=== PATIENT | male | born 1995 | race African-American/Black ===

== ENCOUNTER 2025-01-23 09:10 | Inpatient (IN) | payer OTHER, SELFPAY ==
[2025-01-23] VITALS (22 sets, daily range): BP systolic 127–161; BP diastolic 70–125; BMI 20.1; BMI 19.8
[2025-01-23] MEDS: ZOFRAN 4 MG IV (04:16)
[2025-01-23] MEDS: MORPHINE SULFATE 4 MG IV (04:16)
[2025-01-23 04:23] LABS: Hematocrit 39.8 % (39.0-52.0); Hemoglobin 13.8 g/dL (13.0-18.0); Mean Corp Hgb Conc. 34.7 g/dL (33.0-37.0); Mean Corpuscular Volume 87.9 fL (80.0-94.0); Platelet Count 311 10^3/uL (130-400); Red Cell Dist. Width 12.7 % (11.5-14.5)
[2025-01-23 04:38] LABS: Blood Urea Nitrogen 10 mg/dl (9-20); Calcium 8.9 mg/dl (8.4-10.2); Carbon Dioxide 25 mmol/L (22-30); Chloride 104 mmol/L (98-107); Estimated Creatinine Clearance 114 ml/min; Glucose 219 mg/dl (70-99); Lipase 149 U/L (23-300); Sodium 138 mmol/L (135-145); eGFR > 60.00
[2025-01-23] MEDS: DILAUDID 0.5 MG IV ×3 (05:03→22:17)
[2025-01-23 05:08] LABS: Absolute Neutrophils -Man Diff 15.4 10^3/uL (1.4-6.5); Anisocytosis 1+; Normal RBC Morphology No; Platelets Checked Yes; Total Cells Counted 100
--- NOTE | 2025-01-23 05:40 | ED.GENMED ---
History of Present Illness
General
Chief Complaint: Abdominal Pain
Source: patient and police
Time Seen by Provider: 01/23/25 04:02
Nursing documentation reviewed up to this point in time: agreed with
History of Present Illness
History of Present Illness:
Note:
CHIEF COMPLAINT(S)
Abdominal pain
HISTORY OF PRESENT ILLNESS
The patient is a 29-year-old male who presents with a complaint of abdominal pain that began a few days ago and has progressively worsened. The patient describes the pain as 'horrible.' There is no associated trauma to the area. The patient has not
consumed substantial meals, primarily only snacks like chips and candy. He reports possible constipation but denies any diarrhea.
REVIEW OF SYSTEMS
- Gastrointestinal: Abdominal pain, possible constipation, no diarrhea.
PHYSICAL EXAM
General: Alert, no acute distress.
Skin: Warm, dry.
Head: Normocephalic, atraumatic.
Neck: Supple, trachea midline.
Eye Ears, nose, mouth and throat: Oral mucosa moist.
Cardiovascular: Normal peripheral perfusion, No edema.
Respiratory: Respirations are non-labored.
Gastrointestinal: Abdomen nondistended
Back: Normal range of motion, Normal alignment.
Musculoskeletal: Normal ROM, normal strength.
Neurological: Alert and oriented to person, place, time, and situation, No focal neurological deficit observed.
Psychiatric: Cooperative, appropriate mood & affect.
PROBLEM LIST
Acute abdominal pain
DIFFERENTIAL DIAGNOSIS
The Differential Diagnosis includes, in no particular order and is not limited to:
1. Gastroenteritis
2. Irritable Bowel Syndrome
3. Constipation
4. Appendicitis
5. Peptic Ulcer Disease
6. Cholecystitis
7. Pancreatitis
8. Small Bowel Obstruction
9. Diverticulitis
10. Gastroesophageal Reflux Disease (GERD)
CARE-UPDATE
01/23/25 - 05:42
CT scan reveals a substantial pneumoperitoneum with small inflammatory free fluid along the right colic gutter and pooling in the pelvic cul-de-sac. Source of pneumoperitoneum is not definitively identified but is suspected to be a perforated
gastric ulcer. Spoke with Dr. Donaldo Costello from General Surgery, who will assess the patient in the emergency department this morning.
Disposition:
SUMMARY OF ENCOUNTER
The patient, a 29-year-old male, presented to the emergency department with complaints of worsening abdominal pain over several days. A CT scan revealed a substantial pneumoperitoneum with small inflammatory free fluid along the right colic gutter
and pooling in the pelvic cul-de-sac. There was no definitive source of the pneumoperitoneum identified, but it was suspected to be from a perforated gastric ulcer. After discussing the case with Dr. Donaldo Vivas from General Surgery, it was
decided that the patient would be assessed by General Surgery for further management.
MANAGEMENT OF THE PATIENTS CARE WAS DISCUSSED WITH
The case was discussed with Dr. Donaldo Costello from General Surgery, who will assess the patient in the emergency department.
INDEPENDENT REVIEW OF LABS AND INTERPRETATION OF TESTS
My independent interpretation of the CT scan reveals a substantial pneumoperitoneum with small inflammatory free fluid along the right colic gutter and pooling in the pelvic cul-de-sac. The suspected source is a perforated gastric ulcer.
MEDICAL DECISION MAKING
- Number and Complexity of Problems Addressed: The patient presents with acute abdominal pain likely secondary to a perforated gastric ulcer, with pneumoperitoneum identified on CT scan. The differential diagnosis considered included:
1. Gastroenteritis
2. Pneumoperitoneum
3. Constipation
4. Appendicitis
5. Peptic Ulcer Disease
6. Cholecystitis
7. Pancreatitis
8. Small Bowel Obstruction
9. Diverticulitis
10. Gastroesophageal Reflux Disease (GERD)
- Data:
Category 3: Discussion of management with Dr. Donaldo Vivas, General Surgery.
DIAGNOSIS
- Pneumoperitoneum, suspected perforated gastric ulcer (ICD-10-CM K27.1 - Peptic ulcer, acute with perforation)
Phy Exam
General Physical Exam
General Presentation: moderate distress
General age: appears stated age
General Skin: warm and dry
General Habitus: normal
General Mental: alert
General Hydration: appears well hydrated
ENT Exam
ENT Exam: EOMI, pharynx normal, neck supple and normocephalic
Eye Exam
Eye Exam: PERRL, cornea clear and conjunctiva normal
Cardiovascular Exam
Cardiovascular Exam: regular rate/rhythm, no edema, no murmur and normal peripheral pulses
Pulmonary Exam
Pulmonary Exam: lungs clear, no respiratory distress, no rales, no crackles, no rhonchi, no stridor, no wheezing and no cough
Gastrointestinal Exam
Gastrointestinal Exam: distended, guarding and tender
Palpation: generalized: Moderate tenderness
Auscultation of Abdomen: hyperactive
Neurological Exam
Neurological Exam: alert and oriented x3
Musculoskeletal Exam
Musculoskeletal Exam: full ROM and no edema
Skin Exam
Skin Exam: normal color, warm/dry, no rash and no petechia
Psychiatric Exam
Psychiatric Exam: normal mood/affect
Course
Orders/Labs/Results
Orders:
Orders
01/23/25 03:54
IV Insert/Care/Rem.- Treatment PRN
01/23/25 03:55
Electrocardiogram (*1) Urgent
Reason for Study: Abdominal Pain
EKG- Treatment ONCE
01/23/25 04:01
Basic Metabolic Panel Urgent
Comment: NO K
Complete Blood Count/With Diff Urgent
Lipase Urgent
Manual Differential Urgent
Comment: ADD ON
01/23/25 04:05
Lactic Acid Urgent
01/23/25 04:07
Morphine Sulfate 4 mg IV NOW STA
Ondansetron Injectable [Zofran] 4 mg IV NOW STA
01/23/25 04:42
CT Abd/pelvis W Iv Cont Urgent
Comment:
Reason For Exam: upper abd pain
01/23/25 05:01
HYDROmorphone [Dilaudid] 0.5 mg .ROUTE .STK-MED ONE
01/23/25 05:02
HYDROmorphone [Dilaudid] 0.5 mg IV NOW STA
01/23/25 05:43
Piperacillin/Tazo 4.5 Gram [Zosyn] 4.5 gram in 100 ml IV NOW
01/23/25 05:54
HYDROmorphone [Dilaudid] 0.5 mg IV NOW STA
01/23/25 Breakfast
NPO
Allow oral meds: No
Allow clear liquids: No
NPO with Ice Chips: Yes
01/23/25 06:11
Vancomycin [Vancocin] 1,500 mg 0.9% Sodium Chloride 500 ml [Nss] 500 ml IV NOW
01/23/25 07:04
Bupivacaine Mpf 0.25% [Sensorcaine-Mpf 0.25% Vial] 30 ml .ROUTE .STK-MED ONE
01/23/25 07:13
Lidocaine 2% Mpf [Xylocaine Mpf 2%] 100 mg .ROUTE .STK-MED ONE
Propofol [Diprivan] 40 ml .ROUTE .STK-MED
01/23/25 07:16
Dexamethasone Sod Phosphate [Decadron] 20 mg .ROUTE .STK-MED ONE
Dexmedetomidine HCl [Precedex] 200 mcg .ROUTE .STK-MED ONE
Fentanyl Citrate/Pf [Sublimaze] 100 mcg .ROUTE .STK-MED ONE
Ketamine 5 ml .ROUTE .STK-MED
Midazolam HCl [Versed] 2 mg .ROUTE .STK-MED ONE
Ondansetron Injectable [Zofran] 4 mg .ROUTE .STK-MED ONE
Rocuronium [place] [Rocuronium] 100 mg .ROUTE .STK-MED ONE
01/23/25 07:19
Bupivacaine 0.25%Pf/Epinephrin [Sensorcaine-Epi 0.25%-0.0005] 30 ml .ROUTE .STK-MED ONE
01/23/25 07:25
Fentanyl Citrate/Pf [Sublimaze] 25 mcg IV [id number] PRN
Morphine Sulfate 2 mg IV PACU-Q5MPRN PRN
Morphine Sulfate 4 mg IV PACU-Q5MPRN PRN
Ondansetron Injectable [Zofran] 4 mg IV PACU-ONCEPRN PRN
Prochlorperazine [Compazine] 5 mg IV PACU-ONCEPRN PRN
Notify MD As Directed
Notify physician if: for SDS patients with known or suspected sleep obstructive sleep apnea, monitor in the
PACU.
Notify MD for any apneic/desaturation episodes
O2 Therapy [RESP] Urgent
Titrate/Wean O2 to maintain O2 sat greater than (%): 92
Special Instructions: -Provide supplemental oxygen to achieve O2 sat of 92% or greater.
-After 15 min, may wean O2 and discontinue if patient is able to maintain O2 sat of 92%
or greater during recovery period.
If patient is a discharge home, without oxygen therapy, notify anestheiologist if
unable to maintain O2 SAT of 92% or greater on room air for MD clearance.
01/23/25 07:30
Normosol (Mult Electrolytes) [Normosol-R/Plasmalyte-A] 1,000 ml IV PER PROTOCOL
01/23/25 08:04
Bupivacaine 0.25%Pf/Epinephrin [Sensorcaine-Epi 0.25%-0.0005] 30 ml .ROUTE .STK-MED ONE
01/23/25 08:06
HYDROmorphone [Dilaudid] 1 mg .ROUTE .STK-MED ONE
01/23/25 08:36
Sugammadex Sodium [[place]] 400 mg .ROUTE .STK-MED ONE
01/23/25 08:44
Succinylcholine Chloride [Succinylcholine] 200 mg .ROUTE .STK-MED ONE
01/23/25 08:49
Admit/Transfer Patient As Directed
Co-Sign Provider:
Level of Care: Inpatient admission
Assign to:: Medical/Surgical
Physician / Group: Pravin
Diagnosis: Perforated duodenal ulcer
Reason for Hospitalization: OR
Expected length of stay greater than two midnights?: Yes
ELOS- Estimated Length of Stay in days: 5
I certify the patient meets the requirements for IP care: Yes
01/23/25 08:50
PRN Pain Medication Management As Directed
May give lesser potent ordered pain med per pt: Yes
preference::
Protocol:: Medication orders for pain may be administered in a
manner that supports deferring to patient preference
when the pt is:
- Requesting an ordered lesser potent pain medication.
Least to most potent pain medications are defined
as: acetaminophen < NSAID < tramadol < opioids
(morphine, oxycodone, hydromorphone).
- Requesting a lesser dose of the same medication IF
ORDERED.
- Requesting a less intrusive route of administration
if both routes are prescribed by the provider (PO <
IV).
01/23/25 08:51
Code Status As Directed
Resuscitation Status: Full Code
01/23/25 09:24
Acetaminophen 1000MG/100Ml [Ofirmev] 1,000 mg in 100 ml IV Q6HPRN
Acetaminophen IV Indication:: No NV & No Enteral Access
HYDROmorphone [Dilaudid] 0.5 mg IV Q2HPRN PRN
HYDROmorphone [Dilaudid] 1 mg IV Q2HPRN PRN
Normosol (Mult Electrolytes) [Normosol-R/Plasmalyte-A] 1,000 ml IV 120 mls/hr
Ondansetron Injectable [Zofran] 4 mg IV Q6HPRN PRN
Pantoprazole [Protonix IV] 80 mg IV NOW STA
Prochlorperazine [Compazine] 5 mg IV Q6HPRN PRN
01/23/25 09:24
Activity As Directed
Activity Level: Out of Bed-Early Mobility
As Tolerated
Cold Application As Directed
Location: abdominal
Frequency: PRN
Duration of Application: No longer than 30 minutes
Method of Delivery: Ice packs
Method of Delivery: Ice packs
Gastrointestinal Tubes As Directed
Type: [place] sump
To suction?: Yes
Type of suction: Low intermittent
Directions to clamp NG tube: clamp for ambulation <30min
Irrigate tube?: Yes
Irrigant: Tap Water
Frequency: Q4H
Amount in mls: 30
Irrigation Directions: Irrigate Q4H and PRN
Intake/ Output As Directed
Frequency: Per unit guidelines
Pneumatic Compression Sleeves As Directed
Type: Knee high
Vital Signs As Directed
Frequency: Per unit guidelines
Rx Incentive Spirometry [RESP] Routine
Frequency: q1h while awake
# of times per hour: 10
DX Deep Vein Thrombosis Video Routine
01/23/25 10:00
Pantoprazole 80 mg/100 ml Nss [Protonix] 80 mg in 100 ml IV Q10H
01/23/25 12:00
Piperacillin/Tazo 3.375 Gram [Zosyn] 3.375 gram in 50 ml IV Q6H
01/23/25 18:00
Enoxaparin Sodium [Lovenox] 40 mg SC QPM
01/24/25 05:33
Basic Metabolic Panel IN AM
Complete Blood Count/No Diff IN AM
01/25/25 06:00
Basic Metabolic Panel IN AM
Complete Blood Count/No Diff IN AM
01/26/25 06:00
Basic Metabolic Panel IN AM
Abnormal Lab Results
01/23/25 01/23/25
04:01 04:05
WBC 22.0 H 10^3/uL
(4.8-10.8)
RBC 4.53 L 10^6/uL
(4.70-6.10)
Abs Neuts (Manual) 15.4 H 10^3/uL
(1.4-6.5)
Monocytes (Manual) 1 L %
(2-9)
Glucose 219 H mg/dl
(70-99)
Lactic Acid 3.7 H mmol/L
(0.7-2.0)
01/23/25 04:01
01/23/25 04:01
Vital Signs
Initial and Last Documented VS:
Initial Vital Signs
Temp Pulse Resp BP Pulse Ox
98.0 F 69 17 147/125 98
01/23/25 03:55 01/23/25 03:55 01/23/25 03:55 01/23/25 03:55 01/23/25 03:55
Last Documented Vital Signs
Temp Pulse Resp BP Pulse Ox
99.2 F 57 16 151/80 100
01/24/25 15:10 01/24/25 15:10 01/24/25 15:10 01/24/25 15:10 01/24/25 15:10
*Pulse Oximetry
SaO2: 98
Oxygen Mode of Delivery: Room air
Patient hypoxic: no
*Critical Care Note
Total Time (30-74mins, 75-104mins- exclusive of procedures): Not Applicable
Update Note
Update Note:
NAME: EDNA SAINI
DATE OF EXAM: 01/23/2025
Patient No: [id number]
Physician: JOSE F
Date of : 1995
Past Medical History (entered by Technologist):
Reason For Exam (entered by Technologist): abdominal pain that started several days ago,
Other Notes (entered by Technologist): no prior ct
Additional Information (per [facility] Radiologist):
CT abdomen/pelvis with contrast
Comparison: None
IMPRESSION:
Large pneumoperitoneum. Small inflammatory free fluid is present along the right colic gutter, and pooling in the pelvic cul-de-sac. The source of the pneumoperitoneum is not definitively identified, although is considered most likely to be a
perforated gastric ulcer. Recommend urgent surgical consultation.
Small hiatal hernia. Possible mild adynamic ileus without small bowel obstruction. The appendix (e.g. axial images 59-63) is not fully resolved but appears normal where seen. Extensive stranding along the ascending colon, which may reflect
omental inflammation, although a colitis may have a similar appearance. The remainder of the colon appears unremarkable.
Additional findings:
�Lung bases clear.
� Normal liver, gallbladder, pancreas, spleen, adrenal glands, kidneys.
� Mild wall thickening of the urinary bladder is favored reactive, although consider urinalysis to exclude superimposed cystitis.
� No abdominal aortic aneurysm. Patent splanchnic vessels.
� No acute osseous abnormality.
Case discussed with Dr. Richards at 5:31 AM ET
Annetta Ching M.D.
This report has been electronically signed and verified by the Radiologist whose name is printed above.
ED Attending Note
-
Portions of this chart may have been created with voice recognition software.� Occasional wrong word or��sound alike� substitutions may have occurred due to the inherent limitations of voice recognition software.
Discharge Plan
Departure
Patient Disposition: OR
Date of Disposition: 01/23/25
Time of Disposition: 05:53
Presentation/result/management discussed w/ accepting /: Donaldo Costello
Condition: Critical
Discharge Problem:
Pneumoperitoneum
Interventions
Interventions:
*Risk Screen - Suicide Last Done: 01/23/25 04:52
*General Assessment Last Done: 01/23/25 03:55
*Neglect/Abuse Screening Last Done: 01/23/25 03:55
*ED- Fall Risk Assessment Last Done: 01/23/25 03:55
*ED COVID-19 Vaccine History Last Done: 01/23/25 03:55
*Nursing Disposition Last Done: 01/23/25 07:15
RR-[id number]-Ofcjzddjrz Assessment Last Done: 01/23/25 04:23
Discharge Date and Time
Discharge Date/Time: 01/23/25 07:16
[2025-01-23] MEDS: ZOSYN 100 IV (06:12)
[2025-01-23] MEDS: VANCOCIN 530 MG IV (06:33)
--- NOTE | 2025-01-23 07:42 | HPS.HSE ---
Family Physician
-
Family Physician: NOT KNOW UNKNOWN - PT DOES
Chief Complaint
-
Abdominal pain
History of Present Illness
Patient is a 29-year-old male who reports the acute onset of severe and persistent epigastric abdominal pain for the last 2 to 3 days. He has had occasional epigastric pain in the past but nothing like this recently. Associated nausea and
anorexia. He has had had some loose bowel movements but no melena or hematochezia. Worse with any movement.
Medical History
Past Medical History
Past Medical History: Reports None (Patient denies any active or significant past medical history)
Past Surgical History: Reports None
Social History
Tobacco: Non-smoker
Alcohol: None
Drug: Marijuana
Living: [facility]
Family History
Family History: Not pertinent
Allergies / Home Medications
Allergies reflects when Allergies were last updated in [facility].
Home Medications with original date entered in [facility]
Allergy/Medication List:
Allergies
Allergy/AdvReac Type Severity Reaction Status Date / Time
No Known Allergies Allergy Verified 01/23/25 04:11
Patient reports no regular medications
Review of Systems
-
History Source: Patient
A 12 point ROS was completed and negative except as noted: Yes
Physical Exam
Vital Signs
Vital Signs
Temp Pulse Resp BP Pulse Ox
98.0 F 65 29 150/93 98
01/23/25 03:55 01/23/25 06:30 01/23/25 06:30 01/23/25 06:00 01/23/25 05:43
Physical Exam
General: Well Developed, Well Nourished, Appears in Distress and Other (Acutely ill-appearing)
HEENT: NormoCephalic, Anicteric, Moist mucous membranes and Atraumatic
Respiratory: Non Labored Respirations
Cardiac: Regular Rhythm
GI: Tender (Generalized tenderness on palpation with rebound and guarding in the epigastrium) and Distended
Skin: Warm
Neuro: AO x 3
Psych: Calm
Laboratory Results
-
01/23/25 04:01
01/23/25 04:01
Laboratory Results
Lactic Acid 3.7 mmol/L (0.7-2.0) H 01/23/25 04:05
Total Bilirubin Cancelled 01/23/25 04:01
AST Cancelled 01/23/25 04:01
ALT Cancelled 01/23/25 04:01
Alkaline Phosphatase Cancelled 01/23/25 04:01
Lipase 149 U/L (23-300) 01/23/25 04:01
Data Reviewed
-
CT Scan: Image Personally Visualized and interpreted, Report Reviewed by me, Discussed with Physician and Discussed with Patient
Impression/Plan
-
IMPRESSION: 29-year-old male with peritonitis and perforated viscus. Suspect perforated peptic ulcer gastric or duodenal based on history and CT imaging.
Advised patient of imaging results and recommended urgent operative intervention for management. Exploratory laparotomy, repair of perforated viscus was reviewed in detail including potential operative findings such as repair of a gastric or
duodenal ulcer, small bowel resection if perforation or management of colonic perforation as well. We discussed benefits of surgery and risk such as but not limited to bleeding, infectious and wound related complications. Discussed typical
postoperative recovery pending operative findings
PLAN: Ex lap, repair of perforated viscus
--- NOTE | 2025-01-23 07:52 | W.SUR.PREOP ---
Pre-Operative Surgical Note
-
I have examined this patient prior to the performance of the scheduled procedure.
The patient's condition is unchanged from the time of the current History and
Physical and the patient is able to undergo the scheduled procedure.
--- NOTE | 2025-01-23 09:06 | W.IMMPOSTOP ---
Addendum entered and electronically signed by Donaldo Costello MD 01/23/25 09:15:
#[id number]
Original Note:
Surgical Immed Post Op Note
-
Primary Surgeon: Donaldo Costello MD
Assisting Surgeon: Emily JEFFERY
Pre-op Diagnosis: Perforated viscus, free air, peritonitis
Post-op Diagnosis: Perforated duodenal ulcer/peritonitis
Procedure Performed: Exploratory laparotomy primary repair perforated duodenal ulcer with omental pedicle flap
Anesthesia Type: GETA +0.25% Marcaine with epi
Specimen / Cultures: None
Estimated Blood Loss: 8 mL
Complications: None immediate
Operative Findings: 5 mm perforated duodenal ulcer located in the duodenal bulb immediately distal to pylorus. Primary closure of ulcer with 3-0 silk. Omental pedicle flap buttress. Mild to moderate contamination washed out.
[2025-01-23] MEDS: PROTONIX IV 80 MG IV (09:57)
[2025-01-23] MEDS: NSS (PRESERVATIVE FREE) 20 ML IV (09:58)
[2025-01-23] MEDS: PROTONIX 100 IV ×2 (10:06→17:25)
[2025-01-23] MEDS: ZOSYN 50 IV ×3 (11:52→23:51)
[2025-01-23] MEDS: NORMOSOL-R/PLASMALYTE-A 1000 IV ×2 (12:37→22:17)
[2025-01-23] MEDS: DILAUDID 1 MG IV ×2 (14:03→19:30)
--- NOTE | 2025-01-23 14:32 | PTCARENOTE ---
Received patient from PACU around 1305 via bed in stable condition. Patient accompanied by 2 correctional guards. NGT to right nare at 65 marking to LIWS with brown drainage. Midline abdominal incision with surgical glue MAXIMUS. Patient oriented to
room. Call borden in reach.
[2025-01-23] MEDS: LOVENOX 40 MG SC (17:27)
[2025-01-24] MEDS: DILAUDID 1 MG IV ×4 (00:32→15:35)
[2025-01-24] MEDS: PROTONIX 100 IV (01:12)
[2025-01-24 03:13] VITALS: BP 132/77
[2025-01-24] MEDS: ZOSYN 50 IV ×3 (05:32→18:08)
[2025-01-24 06:23] LABS: Hematocrit 36.4 % (39.0-52.0); Hemoglobin 12.5 g/dL (13.0-18.0); Mean Corp Hgb Conc. 34.3 g/dL (33.0-37.0); Mean Corpuscular Volume 89.4 fL (80.0-94.0); Platelet Count 290 10^3/uL (130-400); Red Cell Dist. Width 12.9 % (11.5-14.5)
[2025-01-24 06:46] LABS: Blood Urea Nitrogen 9 mg/dl (9-20); Calcium 8.7 mg/dl (8.4-10.2); Carbon Dioxide 28 mmol/L (22-30); Chloride 102 mmol/L (98-107); Estimated Creatinine Clearance 100 ml/min; Glucose 94 mg/dl (70-99); Potassium 4.2 mmol/L (3.5-5.1); Sodium 137 mmol/L (135-145); eGFR > 60.00
[2025-01-24 07:10] VITALS: BP 143/85
[2025-01-24] MEDS: NORMOSOL-R/PLASMALYTE-A 1000 IV ×2 (07:28→16:21)
[2025-01-24 11:00] VITALS: BP 137/86
[2025-01-24] MEDS: DILAUDID 0.5 MG IV ×2 (11:31→21:08)
--- NOTE | 2025-01-24 11:47 | W.PN.GS2 ---
Today's Communication / Plan
-
c/w PPI/NGT/IVF
void trial
Assessment / Plan
-
29 yo male presenting with perforated duodenal ulcer/peritonitis now POD #1 ex lap and primary repair of perforated duodenal ulcer with omental pedicle flap
Tmax 99.8, VSS
NGT with gastric outputs
Pain well managed
Leukocytosis improved
Mild acute anemia present suspect secondary to hemodilution as well as some expected operative blood losses
Plan:
Continue with NGT in place in immediate post operative period
Remove grider for voiding trial
Change PPI drip to IVP BID
Continue NPO
Continue IVF
Analgesics scheduled and prn, no NSAIDS
Continue IV ABX
OOB/Ambulate
Trend labs
Lovenox and SCDs for VTE ppx
Subjective Data
-
Date of Service: January 24, 2025
Pt seen and examined at bedside with Dr. Cota. Denies n/v. Pain well managed. Voiding since grider removed.
Objective Data
-
Intake and Output
01/23/25 0701/25/25
06:59 06:59 06:59
Intake Total 3205 / 3205
Output Total 2100 / 2100
Balance 1105 / 1105
Intake:
Oral fluids 240 / 240
IV fluids (Total) 1565 / 1565
normasol 125 / 125
IV piggybacks 720 / 720
Amount instilled into GI Tube ( 680 / 680
Total)
[place] Sump 680 / 680
Output:
Gastrointestinal tube output ( 250 / 250
Total)
[place] Sump 250 / 250
Urine, Grider 1400 / 1400
Urine, Voided 450 / 450
Vital Signs
Temp Pulse Resp BP Pulse Ox
99.3 F 59 14 137/86 100
01/24/25 11:00 01/24/25 11:00 01/24/25 11:00 01/24/25 11:00 01/24/25 11:00
Lab Results
01/24/25 05:33
01/24/25 05:33
Calcium 8.7 mg/dl (8.4-10.2) 01/24/25 05:33
Total Bilirubin Cancelled 01/23/25 04:01
AST Cancelled 01/23/25 04:01
ALT Cancelled 01/23/25 04:01
Alkaline Phosphatase Cancelled 01/23/25 04:01
Total Protein Cancelled 01/23/25 04:01
Albumin Cancelled 01/23/25 04:01
Physical Exam
-
NAD
ABD soft, mild distention, generalized tenderness
NGT with gastric outputs
Incision well approximated with intact glue
Patient has a grider catheter: No
Patient has a central line: No
[2025-01-24] MEDS: PROTONIX IV 40 MG IV ×2 (12:40→21:02)
[2025-01-24] MEDS: NSS (PRESERVATIVE FREE) 10 ML IV ×2 (12:40→21:02)
[2025-01-24] MEDS: OFIRMEV 100 IV ×2 (12:40→18:09)
[2025-01-24 13:15] VITALS: BMI 19.8
[2025-01-24 15:10] VITALS: BP 151/80
[2025-01-24] MEDS: LOVENOX 40 MG SC (18:09)
[2025-01-24 23:00] VITALS: BP 153/88
[2025-01-25] MEDS: ZOSYN 50 IV ×4 (00:07→16:53)
[2025-01-25] MEDS: OFIRMEV 100 IV ×4 (00:08→21:41)
[2025-01-25] MEDS: NORMOSOL-R/PLASMALYTE-A 1000 IV (00:08)
[2025-01-25] MEDS: DILAUDID 0.5 MG IV ×3 (00:21→22:00)
[2025-01-25 06:37] LABS: Hematocrit 32.7 % (39.0-52.0); Hemoglobin 11.3 g/dL (13.0-18.0); Mean Corp Hgb Conc. 34.6 g/dL (33.0-37.0); Mean Corpuscular Volume 89.1 fL (80.0-94.0); Platelet Count 274 10^3/uL (130-400); Red Cell Dist. Width 12.6 % (11.5-14.5)
[2025-01-25 06:56] LABS: Blood Urea Nitrogen 9 mg/dl (9-20); Calcium 8.7 mg/dl (8.4-10.2); Carbon Dioxide 24 mmol/L (22-30); Chloride 103 mmol/L (98-107); Estimated Creatinine Clearance 90 ml/min; Glucose 75 mg/dl (70-99); Potassium 3.9 mmol/L (3.5-5.1); Sodium 135 mmol/L (135-145); eGFR > 60.00
[2025-01-25 07:15] VITALS: BP 176/85
[2025-01-25] MEDS: PROTONIX IV 40 MG IV ×2 (07:16→19:29)
[2025-01-25] MEDS: NSS (PRESERVATIVE FREE) 10 ML IV ×2 (07:17→19:30)
[2025-01-25] MEDS: DILAUDID 1 MG IV ×3 (08:01→18:26)
[2025-01-25] MEDS: NORMOSOL-R/PLASMALYTE-A IV (08:05)
[2025-01-25] MEDS: D5LR 1000 IV ×2 (09:40→19:31)
--- NOTE | 2025-01-25 10:00 | W.PN.GS2 ---
Today's Communication / Plan
-
C/W NPO/NGT/IVF
Assessment / Plan
-
29 yo male presenting with perforated duodenal ulcer/peritonitis now POD #2 ex lap and primary repair of perforated duodenal ulcer with omental pedicle flap
AFVSS
NGT outptus increased from previous, bile tinged
Pain well managed
Leukocytosis improving
Mild acute anemia present suspect secondary to hemodilution as well as some expected operative blood losses, stable
Plan:
Continue with NGT in place in immediate post operative period
Continue IV PPI
Continue NPO with ice chips for comfort
Continue IVF
Analgesics scheduled and prn, no NSAIDS
Continue IV ABX
OOB/Ambulate
Trend labs
Lovenox and SCDs for VTE ppx
Subjective Data
-
Date of Service: January 25, 2025
Pt seen and examined at bedside with Dr. Cota. Denies n/v. Abdominal pain present but manageable.
Objective Data
-
Intake and Output
01/24/25 01/25/25 01/26/25
06:59 06:59 06:59
Intake Total 2645 / 2645 2100 / 2100
Output Total 2750 / 2750 2525 / 2525
Balance -105 / -105 -425 / -425
Intake:
Oral fluids 240 / 240
IV fluids (Total) 1565 / 1565 1320 / 1320
normasol 125 / 125
IV piggybacks 720 / 720 600 / 600
Amount instilled into GI Tube ( 120 / 120 180 / 180
Total)
[place] Sump 120 / 120 180 / 180
Output:
Gastrointestinal tube output ( 900 / 900 1200 / 1200
Total)
[place] Sump 900 / 900 1200 / 1200
Urine, Grider 1400 / 1400
Urine, Voided 450 / 450 1325 / 1325
Vital Signs
Temp Pulse Resp BP Pulse Ox
98.7 F 56 16 176/85 97
01/25/25 07:15 01/25/25 07:15 01/25/25 07:15 01/25/25 07:15 01/25/25 07:15
Lab Results
01/25/25 05:51
01/25/25 05:51
Calcium 8.7 mg/dl (8.4-10.2) 01/25/25 05:51
Total Bilirubin Cancelled 01/23/25 04:01
AST Cancelled 01/23/25 04:01
ALT Cancelled 01/23/25 04:01
Alkaline Phosphatase Cancelled 01/23/25 04:01
Total Protein Cancelled 01/23/25 04:01
Albumin Cancelled 01/23/25 04:01
Physical Exam
-
NAD
ABD soft, mild distention, generalized tenderness
NGT with bilious outputs (>1L)
Midline incision well approximated with intact glue
Patient has a grider catheter: No
Patient has a central line: No
--- NOTE | 2025-01-25 14:38 | PTCARENOTE ---
Patient requesting to remove SCD. RN educated on importance and prevention of DVTS. Will re-educate on importance later today.
[2025-01-25 15:10] VITALS: BP 150/87
[2025-01-25] MEDS: LOVENOX 40 MG SC (16:52)
[2025-01-25] MEDS: COMPAZINE 5 MG IV (21:59)
[2025-01-25 23:20] VITALS: BP 145/78
[2025-01-26] MEDS: ZOSYN 50 IV ×5 (00:29→23:42)
[2025-01-26] MEDS: OFIRMEV IV ×2 (04:06→16:13)
[2025-01-26] MEDS: DILAUDID 0.5 MG IV ×3 (04:45→21:02)
[2025-01-26] MEDS: D5LR 1000 IV ×2 (04:57→19:03)
[2025-01-26] MEDS: OFIRMEV 100 IV ×3 (04:58→21:01)
[2025-01-26] MEDS: COMPAZINE 5 MG IV (05:54)
[2025-01-26 06:10] LABS: Hematocrit 35.6 % (39.0-52.0); Hemoglobin 12.3 g/dL (13.0-18.0); Mean Corp Hgb Conc. 34.6 g/dL (33.0-37.0); Mean Corpuscular Volume 89.0 fL (80.0-94.0); Platelet Count 305 10^3/uL (130-400); Red Cell Dist. Width 12.4 % (11.5-14.5)
[2025-01-26 06:40] LABS: Blood Urea Nitrogen 6 mg/dl (9-20); Calcium 9.1 mg/dl (8.4-10.2); Carbon Dioxide 31 mmol/L (22-30); Chloride 103 mmol/L (98-107); Estimated Creatinine Clearance 100 ml/min; Glucose 113 mg/dl (70-99); Potassium 4.0 mmol/L (3.5-5.1); Sodium 138 mmol/L (135-145); eGFR > 60.00
[2025-01-26 07:15] VITALS: BP 158/87
--- NOTE | 2025-01-26 07:17 | W.PN.GS2 ---
Addendum entered and electronically signed by Donaldo Costello MD 01/26/25 15:01:
Anemia due to hemodilution only
Sepsis present on admission - WBC 22, RR 30; due to perforated duodenal ulcer : resolved
Acuity of the duodenal ulcer is suspected to be acute
Addendum entered and electronically signed by Keven Spencer MD 01/26/25 13:35:
Upper GI incomplete due to vomiting secondary to patient nausea. Subsequent images do not show leak however given degree of nausea we will keep NG tube in for at least 1 more day and follow clinically.
Addendum entered and electronically signed by Keven Spencer MD 01/26/25 11:55:
I saw and examined the patient independently.
The resident's documentation was reviewed and I agree with the note, assessment and plan except where noted below.
Comment: This is a 29-year-old male who presented with abdominal pain found to have a perforated duodenal ulcer now postoperative day 3 from exploratory laparotomy, primary repair and omental pedicle flap. Doing well, expected postoperative course.
Overall clinically improved however still endorsing some nausea.
Will get an upper GI with Omnipaque to assess for any residual leak. If none, will pull NG tube and start on clears.
Anticipate patient going home on week of full liquids and will slowly advance to a regular diet from there.
Continue PPI, avoid NSAIDs.
Recommend a 4-day course of antibiotics.
Patient agreeable to plan of care, surgery will follow
-----
Addendum:
Initial upper GI images do not follow contrast distally enough, will get additional plain films.
Original Note:
Today's Communication / Plan
-
Plan reviewed with attending
Assessment / Plan
-
29 yo male presenting with perforated duodenal ulcer/peritonitis now POD #3 ex lap and primary repair of perforated duodenal ulcer with omental pedicle flap
AFVSS
NGT outputs decreased from previous, bile tinged
Pain well managed
Leukocytosis improving
Mild acute anemia stable suspect secondary to hemodilution
Plan:
Upper GI today. If negative for extravasation, NG can be removed. Pending nausea, consider advancing diet sips and possibly clears.
NPO until scan.
Continue IV PPI
Continue IVF
Analgesics scheduled and prn, no NSAIDS
Continue IV ABX
OOB/Ambulate
Trend labs
Lovenox and SCDs for VTE ppx
Subjective Data
-
Date of Service: January 26, 2025
This morning, pt reports feeling well. Intermittent incisional pain well controlled on current regimen. He had an episode of nausea resolved with compazine. No vomiting. Reports passing gas but no BM.
Objective Data
-
Intake and Output
01/25/25 01/26/25 01/27/25
06:59 06:59 06:59
Intake Total 2100 / 2100 1590 / 1590
Output Total 2525 / 2525 2410 / 2410 300 / 300
Balance -425 / -425 -820 / -820 -300 / -300
Intake:
IV fluids (Total) 1320 / 1320 1200 / 1200
IV piggybacks 600 / 600 300 / 300
Amount instilled into GI Tube ( 180 / 180 90 / 90
Total)
[place] Sump 180 / 180 90 / 90
Output:
Gastrointestinal tube output ( 1200 / 1200 410 / 410
Total)
[place] Sump 1200 / 1200 410 / 410
Urine, Voided 1325 / 1325 2000 / 2000 300 / 300
Vital Signs
Temp Pulse Resp BP Pulse Ox
98.5 F 69 17 145/78 100
01/25/25 23:20 01/25/25 23:20 01/25/25 23:20 01/25/25 23:20 01/25/25 23:20
Lab Results
01/26/25 05:32
01/26/25 05:32
Calcium 9.1 mg/dl (8.4-10.2) 01/26/25 05:32
Total Bilirubin Cancelled 01/23/25 04:01
AST Cancelled 01/23/25 04:01
ALT Cancelled 01/23/25 04:01
Alkaline Phosphatase Cancelled 01/23/25 04:01
Total Protein Cancelled 01/23/25 04:01
Albumin Cancelled 01/23/25 04:01
Physical Exam
-
General: no acute distress, lying comfortably in bed
HEENT: anicteric, NG tube in place.
Abdomen:ABD soft, mild distention, no tenderness to palpation. Midline incision clean, dry, intact.
NGT with bilious outputs 410ml over night.
Neuro: A and O x3. Grossly intact.
Patient has a grider catheter: No
Patient has a central line: No
[2025-01-26] MEDS: PROTONIX IV 40 MG IV ×2 (08:44→19:50)
[2025-01-26] MEDS: NSS (PRESERVATIVE FREE) 10 ML IV ×2 (08:44→19:50)
--- NOTE | 2025-01-26 10:28 | CM ---
CM following re: discharge planning.
Reviewed pt's chart, met with pt. There are no guards at bedside.
Pt is a 29 year old male, admitted with primary dx of POD #3 ex lap and primary repair of perforated duodenal ulcer with omental pedicle flap, continue supportive care.
Pt reports he has been released for the [facility], spent one and half week in the [facility]. 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
Pt's address: [address] [place] [address].
Pt stated his mother will transport him home at discharge.
--- NOTE | 2025-01-26 11:36 | PN.CDI ---
CDI
- -
CDI:
Physician Documentation Request
Admit Date: 01/23/25 09:10
Dear Doctor,
Please review the following and provide your response in the progress notes.
Clinical Indicators:
Pt admitted with Perforated Duodenal ulcer/ peritonitis with duodenal repair on 01/23
Progress notes 01/24 &01/25,' Mild acute anemia present suspect secondary to hemodilution as well as some expected operative blood losses..'
01/23/25 01/25/25
04:01 05:51
Hgb 13.8 11.3 L
Hct 39.8 32.7 L
Based on the above, could you clarify, in your progress note, which of the following is the most likely type of anemia you are evaluating, monitoring and/or treating?
Acute blood loss anemia
Anemia due to hemodilution only
Other ( please specify)
Use of terms such as suspected, likely, concern for, or probable (associated with a specific diagnosis that is being evaluated, monitored, or treated as if it exists) are acceptable and can be coded in the inpatient setting, when documented at the
time of discharge.
Thank you,
Corrine Lee RN
CDI Specialist
[facility]
Please use your independent medical judgment in providing your response.
--- NOTE | 2025-01-26 11:58 | PN.CDI ---
CDI
- -
CDI:
Physician Documentation Request
Admit Date: 01/23/25 09:10
Dear Doctor,
Please review the following and provide your response in the progress notes.
Clinical Indicators:
Pt admitted with Perforated Duodenal ulcer/ peritonitis with duodenal repair on 01/23 on IV Zosyn
On admission WBC 22.0, Respirations 30
Please clarify which of the following most accurately describes the status of the patient's infection:
Sepsis-POA
- Systemic manifestations of infection, with 2 or more SIRS criteria which include:
- Fever >100.9 degrees F or hypothermia < 96.8 degrees F
- Leukocytosis - WBC > 12,000 or leukopenia - WBC < 4,000 or > 10% bands
- Tachycardia > 90 beats per minute
- Tachypnea - RR > 20 breaths per minute or PaCO2 , 32mmHg
Source: Merck Manual 2013
Peritonitis only, Without Systemic Illness
Other ( please specify)
Use of terms such as suspected, likely, concern for, or probable (associated with a specific diagnosis that is being evaluated, monitored, or treated as if it exists) are acceptable and can be coded in the inpatient setting, when documented at the
time of discharge.
Thank you,
Corrine Lee RN
CDI Specialist
[place] [facility]
Please use your independent medical judgment in providing your response.
--- NOTE | 2025-01-26 12:06 | PN.CDI ---
CDI
- -
CDI:
Physician Documentation Request
Admit Date: 01/23/25 09:10
Dear Doctor,
Please review the following and provide your response in the progress notes.
Clinical Indicators:
Pt admitted with Perforated Duodenal ulcer/ peritonitis with duodenal repair on 01/23
Clarify which of the following accurately represents the suspected acuity of the ( duodenal ulcer )
Acute
Acute on Chronic
Chronic
Other ( please specify)
Use of terms such as suspected, likely, concern for, or probable (associated with a specific diagnosis that is being evaluated, monitored, or treated as if it exists) are acceptable and can be coded in the inpatient setting, when documented at the
time of discharge.
Thank you,
Corrine Lee RN
CDI Specialist
[place] [facility]
Please use your independent medical judgment in providing your response.
[2025-01-26 15:20] VITALS: BP 159/88
[2025-01-26] MEDS: LOVENOX 40 MG SC (19:03)
[2025-01-26 23:19] VITALS: BP 156/89
[2025-01-27] MEDS: DILAUDID 1 MG IV ×2 (00:18→19:56)
[2025-01-27] MEDS: OFIRMEV 100 IV ×2 (03:24→08:31)
[2025-01-27] MEDS: D5LR 1000 IV ×2 (03:29→17:30)
[2025-01-27] MEDS: ZOSYN 50 IV ×4 (05:47→23:44)
[2025-01-27 07:20] VITALS: BP 169/96
[2025-01-27] MEDS: PROTONIX IV 40 MG IV ×2 (08:30→19:42)
[2025-01-27] MEDS: NSS (PRESERVATIVE FREE) 10 ML IV ×2 (08:30→19:41)
[2025-01-27] MEDS: DILAUDID 0.5 MG IV ×3 (08:31→23:55)
--- NOTE | 2025-01-27 08:36 | W.PN.GS2 ---
Addendum entered and electronically signed by Efren Grace MD 01/27/25 08:56:
Patient seen and examined.
Denies any worsening abdominal pain, nausea or vomiting. Passing flatus and loose BMs. Afebrile. Ambulating.
Gen: NAD
HEENT: NGT with clear gastric fluid
Abd: soft, NT/ND, non-peritoneal, incision c/d/i - no erythema, ecchymosis or drainage
Patient is a 29 yo M POD#4 s/p ex lap, primary repair of the duodenal ulcer with omental pedicle flap
UGI (01/26): No evidence of a leak, delayed passage of contrast from the stomach, symptomatic nausea and vomiting limiting exam
X-ray Abd (01/26): Contrast passage into the SB
AVSS
No new labs
Delayed passage of contrast yesterday likely due to edema and swelling at site of repair. Follow-up x-ray does demonstrate passage of contrast into the small bowel. Currently clinically asymptomatic. Plan for NGT clamp trial throughout the
morning with possible removal if remains asymptomatic. All questions answered.
-- NGT clamp trial
-- OK for sips during clamp trial
-- IVF
-- Pain control: Tylenol, IV Dilaudid PRN, NO NSAIDS
-- Abx: Zosyn
-- DVT: Lovenox
-- GI: PPI
Original Note:
Today's Communication / Plan
-
Plan reviewed with attending.
Assessment / Plan
-
29 yo male presenting with perforated duodenal ulcer/peritonitis now POD #4 ex lap and primary repair of perforated duodenal ulcer with omental pedicle flap. He is feeling well with no nausea or vomiting since upper GI study yesterday.
AFVSS
NGT outputs <1L
Pain well managed
Plan:
NG clamp trial today. Pending nausea, consider advancing diet to sips and possibly clears. Advancing diet cautiously due to bout of nausea yesterday with UGI.
Continue IV PPI
Continue IVF until NG pulled.
Analgesics scheduled and prn, no NSAIDS.
Continue IV ABX
OOB/Ambulate
Lovenox and SCDs for VTE ppx
Subjective Data
-
Date of Service: January 27, 2025
29yoM here for perforated duodenal ulcer POD #4 primary ulcer repair and omental pedicle flap. Pt denies nausea or vomiting overnight. Denies pain at rest. He reports pain with coughing/laughing but well controlled on current regimen. He reports
having a loose BM.
Objective Data
-
Intake and Output
01/26/25 01/27/25 01/28/25
06:59 06:59 06:59
Intake Total 1590 / 1590 2840 / 2840
Output Total 2410 / 2410 3440 / 3440
Balance -820 / -820 -600 / -600
Intake:
Oral fluids 120 / 120
IV fluids (Total) 1200 / 1200 1999 / 1999
IV piggybacks 300 / 300 600 / 600
Amount instilled into GI Tube ( 90 / 90 120 / 120
Total)
[place] Sump 90 / 90 120 / 120
Output:
Gastrointestinal tube output ( 410 / 410 890 / 890
Total)
[place] Sump 410 / 410 890 / 890
Urine, Voided 1999 2550 / 2550
Vital Signs
Temp Pulse Resp BP Pulse Ox
98.3 F 50 16 169/96 100
01/27/25 07:20 01/27/25 07:20 01/27/25 07:20 01/27/25 07:20 01/27/25 07:20
Lab Results
01/26/25 05:32
01/26/25 05:32
Calcium 9.1 mg/dl (8.4-10.2) 01/26/25 05:32
Total Bilirubin Cancelled 01/23/25 04:01
AST Cancelled 01/23/25 04:01
ALT Cancelled 01/23/25 04:01
Alkaline Phosphatase Cancelled 01/23/25 04:01
Total Protein Cancelled 01/23/25 04:01
Albumin Cancelled 01/23/25 04:01
Physical Exam
-
General: no acute distress, lying comfortably in bed
HEENT: anicteric, NG tube in place.
Abdomen:ABD soft, no distention, no tenderness to palpation. Midline incision clean, dry, intact.
NGT with gastric fluid 890 ml over night.
Neuro: A and O x3. Grossly intact.
Patient has a grider catheter: No
Patient has a central line: No
--- NOTE | 2025-01-27 10:23 | PN.CDI ---
CDI
- -
CDI:
Physician Documentation Request
Admit Date: 01/23/25 09:10
Dear Doctor Pravin,
Please review the following and provide your response in the progress notes.
Clinical Indicators:
Pt admitted with Perforated Duodenal ulcer/ peritonitis with duodenal repair on 01/23 /Pt on IV Zosyn
Documented in Operative report, ' .... inspection revealed some mild amount offree fluid which appeared to be gastric in nature, but not a lot of bile staining.... There was a little bit of exudate in this,but no gross contamination and no
purulence. After the abdominal cavity was washed out...'
Post operative note ,' Perforated duodenal ulcer/peritonitis...5 mm perforated duodenal ulcer located in the duodenal bulb immediately distal to pylorus. ...Mild to moderate contamination washed out.....'
Please further specify the type of peritonitis:
Acute Perforated duodenal ulcer with Localized peritonitis
Acute Perforated duodenal ulcer with Generalized peritonitis
Acute perforated duodenal ulcer with peritonitis only ( unable to further specify type)
Other ( please specify)
Use of terms such as suspected, likely, concern for, or probable (associated with a specific diagnosis that is being evaluated, monitored, or treated as if it exists) are acceptable and can be coded in the inpatient setting, when documented at the
time of discharge.
Thank you,
Corrine Lee RN
CDI Specialist
[place] [facility]
Please use your independent medical judgment in providing your response.
--- NOTE | 2025-01-27 13:51 | CM ---
CM reviewed chart, plan for NGT clamp trial, IVF. Plan remains home with family once stable for discharge. CM will continue to follow for all discharge planning needs.
Plan; home with family when stable, mother to transport.
[2025-01-27 15:15] VITALS: BP 138/68
[2025-01-27 15:20] VITALS: BP 174/101
[2025-01-27 16:08] VITALS: BP 128/70
[2025-01-27] MEDS: LOVENOX 40 MG SC (17:26)
[2025-01-27 23:00] VITALS: BP 140/95
[2025-01-28] MEDS: D5LR 1000 IV ×2 (00:03→05:15)
[2025-01-28] MEDS: ZOSYN 50 IV ×4 (05:15→23:45)
[2025-01-28] MEDS: DILAUDID 0.5 MG IV ×4 (06:17→22:00)
[2025-01-28 07:10] VITALS: BP 164/92
--- NOTE | 2025-01-28 07:34 | W.PN.GS2 ---
Addendum entered and electronically signed by Stevie Bahena MD 01/28/25 10:44:
I saw and examined the patient.
The resident's note was reviewed and I agree with the note.
Comment: AFVSS, pain controlled, denisse CLD, ambulating, voiding. Belly soft, nt, nd, incision cdi with glue. No new labs. Cont IV PPI and IV abx, reduce IVF, adv to FLD, anatoly tylenol and prn narcs
Original Note:
Today's Communication / Plan
-
Plan reviewed with attending.
Assessment / Plan
-
29 yo male presenting with perforated duodenal ulcer/peritonitis now POD #5 ex lap and primary repair of perforated duodenal ulcer with omental pedicle flap. He is feeling well with no nausea or vomiting since NG removed and diet advanced.
AFVSS
Pain well managed
Plan:
Continue IV PPI
Continue IVF until increased PO intake.
Analgesics scheduled and prn, no NSAIDS.
Continue IV ABX
OOB/Ambulate
Lovenox and SCDs for VTE ppx
Subjective Data
-
Date of Service: January 28, 2025
This morning Mr. Peters is feeling well. After 6hr clamp trial was successful, NG was pulled. He reports tolerating clears well yesterday for lunch and dinner. Denies nausea, vomiting. Pain is well controlled. Passing gas and BM. Ambulating.
Objective Data
-
Intake and Output
01/27/25 01/28/25 01/29/25
06:59 06:59 06:59
Intake Total 2840 / 2840
Output Total 3440 / 3440
Balance -600 / -600
Intake:
Oral fluids 120 / 120
IV fluids (Total) 2000 / 2000
IV piggybacks 600 / 600
Amount instilled into GI Tube ( 120 / 120
Total)
[place] Sump 120 / 120
Output:
Gastrointestinal tube output ( 890 / 890
Total)
[place] Sump 890 / 890
Urine, Voided 2550 / 2550
Other:
Number of approximated MODERATE 1
amounts of urine
Vital Signs
Temp Pulse Resp BP Pulse Ox
98.9 F 55 16 140/95 100
01/27/25 23:00 01/27/25 23:00 01/27/25 23:00 01/27/25 23:00 01/27/25 23:00
Lab Results
01/26/25 05:32
01/26/25 05:32
Calcium 9.1 mg/dl (8.4-10.2) 01/26/25 05:32
Total Bilirubin Cancelled 01/23/25 04:01
AST Cancelled 01/23/25 04:01
ALT Cancelled 01/23/25 04:01
Alkaline Phosphatase Cancelled 01/23/25 04:01
Total Protein Cancelled 01/23/25 04:01
Albumin Cancelled 01/23/25 04:01
Physical Exam
-
General: No acute distress, lying comfortably in bed
HEENT: Anicteric, atraumatic
Abdomen:ABD soft, no distention, no tenderness to palpation. Midline incision clean, dry, intact.
Neuro: A and O x3. Grossly intact.
Patient has a grider catheter: No
Patient has a central line: No
[2025-01-28] MEDS: PROTONIX IV 40 MG IV ×2 (08:08→20:38)
[2025-01-28] MEDS: NSS (PRESERVATIVE FREE) 10 ML IV ×2 (08:08→20:35)
--- NOTE | 2025-01-28 11:49 | CM ---
CM following re: discharge planning.
Reviewed pt's chart, met with pt.
Pt is POD #5 ex lap and primary repair of perforated duodenal ulcer with omental pedicle flap, feeling well, NG removed and diet advanced.
Pt reports he has been released from the detention, spent one and half week in the detention. 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
Pt's address: [address] [place] [address].
Pt stated his mother will transport him home at discharge.
D/C plan: home with family support. Mother to transport.
[2025-01-28 15:15] VITALS: BP 146/79
[2025-01-28] MEDS: D5LR 500 IV (16:13)
[2025-01-28] MEDS: LOVENOX 40 MG SC (17:16)
[2025-01-28 23:00] VITALS: BP 139/96
[2025-01-29] MEDS: D5LR 500 IV (02:55)
[2025-01-29] MEDS: ZOSYN 50 IV (05:05)
[2025-01-29] MEDS: DILAUDID 0.5 MG IV (05:14)
[2025-01-29 07:30] VITALS: BP 135/89
--- NOTE | 2025-01-29 07:50 | W.PN.GS2 ---
Addendum entered and electronically signed by Donaldo Costello MD 01/29/25 10:14:
Patient seen and examined in follow-up with rn neurosurgical. Agree with documented progress note with additions noted here.
Postoperative pain well-controlled. No nausea, no vomiting.
Bowels moving
Tolerating full liquid diet well. No bloating or distention. No anorexia. No postprandial fullness.
AFVSS
NAD AAO x 3
ABD: Soft, nondistended, minimal incisional tenderness. Incision with glue dressing.
A/P: 29-year-old male POD #6 status post ex lap primary repair of perforated DU
Initially presenting with acute perforated duodenal ulcer with localized peritonitis -> now resolved
Doing well postop
Stable for discharge today
Discussed initial postoperative dietary changes which are outlined in the discharge instructions
PPI twice daily for 30 days postop
Avoid NSAIDs
Outpatient follow-up with myself in approximately 2 weeks
Original Note:
Today's Communication / Plan
-
Plan reviewed with attending.
Assessment / Plan
-
29 yo male presenting with perforated duodenal ulcer with localized peritonitis now POD #6 ex lap and primary repair of perforated duodenal ulcer with omental pedicle flap. He is feeling well with no nausea or vomiting tolerating fulls.
AFVSS
Pain well managed
Plan:
Continue PPI. transition to PO
Discontinue IVF.
Analgesics scheduled and prn, no NSAIDS. PO pain management.
Transition to PO ABX
OOB/Ambulate
Lovenox and SCDs for VTE ppx
Subjective Data
-
Date of Service: January 29, 2025
Pt tolerated full liquid diet yesterday. Denies nausea, vomiting, fever, chills. Ambulating around unit.
Objective Data
-
Intake and Output
01/28/25 01/29/25 01/30/25
06:59 06:59 06:59
Intake Total 4490 / 4490
Balance 4490 / 4490
Intake:
Oral fluids 1440 / 1440
IV fluids (Total) 2800 / 2800
IV piggybacks 250 / 250
Other:
Number of approximated MODERATE 1 2
amounts of urine
Number of unmeasured liquid
stools
Rectum 1
Vital Signs
Temp Pulse Resp BP Pulse Ox
98.7 F 53 16 139/96 100
01/28/25 23:00 01/28/25 23:00 01/28/25 23:00 01/28/25 23:00 01/28/25 23:00
Lab Results
01/26/25 05:32
01/26/25 05:32
Calcium 9.1 mg/dl (8.4-10.2) 01/26/25 05:32
Total Bilirubin Cancelled 01/23/25 04:01
AST Cancelled 01/23/25 04:01
ALT Cancelled 01/23/25 04:01
Alkaline Phosphatase Cancelled 01/23/25 04:01
Total Protein Cancelled 01/23/25 04:01
Albumin Cancelled 01/23/25 04:01
Physical Exam
-
General: No acute distress, lying comfortably in bed
HEENT: Anicteric, atraumatic
Abdomen:ABD soft, no distention, no tenderness to palpation. Midline incision clean, dry, intact.
Neuro: A and O x3. Grossly intact.
Patient has a grider catheter: No
Patient has a central line: No
--- NOTE | 2025-01-29 09:39 | CM ---
CM following re: discharge planning.
Reviewed pt's chart, met with pt.
Discharge order noted. Pt is aware and he stated someone from his family/friends will transport him home.
D/C plan: home no needs. Family/Friend to transport.
[2025-01-29] MEDS: NSS (PRESERVATIVE FREE) 10 ML IV (09:54)
[2025-01-29] MEDS: PROTONIX IV 40 MG IV (09:55)
[2025-01-29] MEDS: ROXICODONE 5 MG PO ×2 (09:58→14:38)
--- NOTE | 2025-01-29 10:14 | W.DS.TRANS ---
DC Summary - Customer Marketing Intern
-
Discharge Instructions:
Discharge Diagnosis/Procedures Perforated duodenal ulcer. Exploratory
laparotomy, repair perforated ulcer
Diet Other diet
Additional Diets smaller meals initially after surgery for 4
weeks. see diet recommendations printed below
Activity No strenuous activity
Additional Activity Do not lift over 15-20lbs for the next 4-6 weeks
Driving Restrictions Wait until comfortable twisting/off narcotics
Bathing Restrictions OK to Shower
Wound Care Allow the glue to flake off your incision on its
own over the next 2-3 weeks.
Instructions:
Stand-Alone Forms:
Changes to Home Medications: No
Discharge Medications:
DC Medications w/original date entered in [facility]
pantoprazole 40 mg tablet,delayed release 40 mg PO BID #60 tabs 01/25/25
acetaminophen 500 mg tablet (Tylenol Extra Strength) 1,000 mg (2 x 500 mg) PO Q6HPRN PRN mild pain #1 tab 01/29/25
oxycodone 5 mg tablet 5 mg PO Q4HPRN PRN breakthrough/severe pain #5 tabs 01/29/25
Home Medication Changes
Pending Results: No
--- NOTE | 2025-01-29 10:14 | W.DCSUMMARY ---
Discharge Summary
Discharge Data
Date of Admission: 01/23/25
Date of Discharge: 01/29/25
-
Pending Results: No
Hospital Course
Patient is a 29-year-old male who was transported to [facility] emergency department on 01/23/2025 from the [facility] secondary to a 2 to 3-day history of severe epigastric abdominal pain and loose bowel movements. In
retrospect the patient recently had a wrist fracture and was taking NSAIDs rather routinely. Imaging was notable for free air and localized peritonitis on examination. He was taken to the operating room for urgent intervention confirming the
presence of a perforated ulcer in the duodenal bulb. Primary repair with omental pedicle flap was performed.
Patient's postoperative course was generally unremarkable. NG tube decompression for 72 hours. PPI drip initially which was transitioned to twice daily dosing. He was covered with Zosyn for empiric antibiotics total course of 5 days postop.
Upper GI contrast imaging showed delayed gastric emptying initially likely secondary to postoperative edema. Despite this he tolerated NG tube clamping trials very well and subsequent prompt dietary advancement over the course of 48 hours. He was
discharged home on postoperative day #6 with a prescription for pantoprazole twice daily, 5 oxycodone 5 mg tablets. Postoperative discharge instructions were reviewed including activity limitations, dietary changes as outlined and surgical
follow-up.
Discharge Plan
-
Patient Disposition: Home (Routine Discharge)
Discharge Diagnosis/Procedures: Perforated duodenal ulcer. Exploratory laparotomy, repair perforated ulcer
Condition: Good
Diet: Other diet
Additional Diets: smaller meals initially after surgery for 4 weeks. see diet recommendations printed below
Activity: No strenuous activity
Additional Activity: Do not lift over 15-20lbs for the next 4-6 weeks
Driving Restrictions: Wait until comfortable twisting/off narcotics
Bathing Restrictions: OK to Shower
Wound Care: Allow the glue to flake off your incision on its own over the next 2-3 weeks.
Activity Restrictions/Additional Instructions:
Ulcerative disease such as yours can be worsened by drinking alcohol, using tobacco and using a group of pain medications called NSAIDS (Aleve, Motrin, Aspirin); please avoid these to allow your body to heal and to prevent future occurrences.
POST GASTRIC SURGERY DIET for 4 weeks post op
Your surgery has temporarily changed how your stomach and intestines work.
The amount and types of foods you eat may cause you to experience nausea, diarrhea, or other symptoms.
Do not eat foods that have a lot of sugar in them.
Have drinks between your meals (not with your meals) and eat the recommended foods.
After you recover from your surgery, some foods (in small amounts) may be slowly added to what you eat each day.
Foods Recommended
While you recover, you should:
Eat very small meals and snacks.
Avoid foods that have lots of sugar.
Have drinks between meals (not with meals or snacks).
Avoid the foods listed on the Foods Not Recommended chart in this handout (A registered dietitian can help you choose foods that are best for you).
�Have a protein food (such as meat, cheese, or eggs) at every meal.
Choose soft and well-cooked foods.
Choose grain foods made with white or refined fiber. Choices should have less than 2 grams (g) fiber per serving.
After surgery, you will start eating solid food by trying one or two foods per meal. One of these foods should be a protein food.
During the recovery period, you can slowly add more foods (in small amounts) to your daily eating plan. In time, you will be eating between six and eight small meals and snacks each day.
While you recover, you should not drink beverages with meals. Instead, you must wait 30 to 60 minutes after you eat solid food before you have a beverage.
The following chart lists the best food choices for the recovery period of 6 to 8 weeks after your surgery.
Food Group Foods Recommended Notes
Milk and Milk Products Buttermilk
Evaporated, skim, and 1% fat milk
Soy milk with no added sugar
Yogurt with no added sugar
Powdered milk
Cheese
Low-fat, low-sugar ice cream Choose lactose-free products if you have lactose intolerance after surgery. (If you have this condition, you will have symptoms after drinking regular milk or eating foods made from milk. Symptoms include diarrhea,
nausea, stomach pain, and bloating.)
If you eat yogurt, choose ones that include live, active cultures. (The food label will list this information.)
Do not drink milk or other beverages with meals or snacks. After eating solid foods, wait 30 to 60 minutes before having a beverage.
Meat and Other Protein Foods Tender, well-cooked meats, poultry, fish, eggs, or soy foods prepared without added fat
Smooth nut butters Make sure to include a protein food in every meal and snack.
Grains White flour
Bread, bagels, rolls, crackers, and pasta made from white or refined flour
Cold or hot cereals made from white or refined flour Choose grain foods with less than
2 g fiber per serving. (The grams of dietary fiber in one serving are listed on the Nutrition Facts label of packaged foods.)
Choose cereals that have no added sugar.
Vegetables Most well-cooked vegetables without seeds or skins
Potatoes without skin
Lettuce
Strained vegetable juice See the Foods Not Recommended chart for specific vegetables to avoid.
Fruits Canned, soft fruits without added sugar
Bananas, melon
Fats Oils, butter, margarine
Cream, cream cheese
Mayonnaise
Beverages Decaffeinated coffee
Caffeine-free tea
Sugar-free soft drinks without caffeine After eating solid foods, wait 30 to 60 minutes before having a beverage. Do not have beverages with meals.
Macy coffee or tea with artificial sweeteners only.
Other Any allowed foods made with artificial sweeteners Allowed artificial sweeteners include saccharin (Sweet �N Low), aspartame (Equal, NutraSweet), sucralose (Splenda), and acesulfame potassium (Sunette, SweetOne).
Foods Not Recommended
Food Group Foods to Limit or Avoid
Milk and Milk Products Chocolate milk
Other milk foods made with added sugar
If you have lactose intolerance, avoid regular milk and foods made with regular milk. Choose lactose-free products or soy milk instead.
Do not drink milk or other beverages with meals or snacks. After eating solid foods, wait 30 to 60 minutes before having a beverage.
Meat and Other Protein Foods Fried meat, poultry, or fish
Luncheon meats, such as bologna and salami
Sausage, hot dogs, edwards
Tough or chewy meats
Dried beans and peas, such as swenson or kidney beans
Nuts, chunky nut butters
Grains Whole grain flour
Breads, bagels, rolls, crackers, and pasta with more than 2 grams of fiber per serving or made from whole grain flour
Cold or hot cereals with more than 2 grams of fiber per serving or made from whole grains
Cereals with added sugar
Vegetables All raw vegetables except lettuce
Any cooked vegetables served with skins or seeds
Beets
Broccoli, brussels sprouts, cabbage
Cauliflower
Collards, mustard, and turnip greens
[place]
Potato skins
Fruits All raw fruits except banana and melons
Dried fruits including prunes and raisins
Fruit juice
Canned fruit in sugar or syrup
Beverages Caffeinated coffee or tea
Alcoholic beverages
Beverages made with sugar, corn syrup, or honey
Fruit juices and fruit drinks
Do not drink beverages with meals or snacks. After eating solid foods, wait 30 to 60 minutes before having a beverage.
Other Sugar
Honey, syrup
Sorbitol, xylitol
Foods that list sugar, honey, syrup, xylitol, or sorbitol as one of the first three ingredients on the food label
[facility] Nutrient [email or web address]
Breakfast 1 scrambled egg1 slice white toast2 teaspoons margarine1 cup decaf coffee (30-60 minutes after breakfast)
Morning Snack 2 oz cheddar cheese6 saltine crackers1/2 cup canned peaches, no added sugar1 cup soy milk, no added sugar (30-60 min after)
Lunch 1/2 cup tuna salad1 slice white bread6 saltine crackers
Afternoon Snack 1 cup yogurt without added sugar
Evening Meal 5 oz roast beef1 cup mashed potatoes1 cup green beans1 cup caffeine-free tea (30-60 minutes after meal)
Evening Snack 1/2 plain bagel2 tablespoons cream cheese1 cup soy milk, no added sugar (30-60 min after)
Daily OhdXlgwsqiuFdncJducjAumpugovwtdoegRshzqrrkzn5799MjxoqbhT5373Kcfcnshf176Djagw lipid (fat)s74Tgherbxzjoha, by ofukadgwsgr357Bikwm, total fqicrfws74Ydjcgt, ncfvge36EmltkjglQvtiszj, Hopt4383Cbua, Xtee43Wxiwqz, Jcvd7857VgvzpmieNdsirag C, total
ascorbic kdcfpp22Jipbuos A, CEJJ9185Hhyrbig AAL166VldpxqLfnuq acids, total zjhezbfdzw38Oetav acids, total tjexmwszvxqtwman35Dzfcy acids, total lrtpgpgqcoxamtkk17Aguxsybgttxql572
Gastric Surgery Vegan Sample 1-Day [facility] Nutrient [email or web address]=true
Breakfast 1/3 cup tofu scramble1 slice white toast2 teaspoons margarine, soft, tub1 cup decaffeinated coffee (30-60 min after breakfast)
Morning Snack 6 saltine crackers1 tablespoon smooth almond butter� cup canned peaches, in juice� cup unsweetened soymilk fortified with calcium, vitamin B12, and vitamin D (30-60 minutes after snack)
Lunch 2 slices white bread2 tablespoons smooth peanut butter1 small banana1 cup green tea (30-60 minutes after lunch)
Afternoon Snack 6 ounces plain soy yogurt
Evening Meal � cup meatless chicken1 cup mashed potatoes1 cup cooked green beans2 teaspoons olive oil1 cup decaffeinated tea (30-60 minutes after dinner)
Evening Snack � ounce pretzels1 cup unsweetened soymilk fortified with calcium, vitamin B12, and vitamin D (30-60 minutes after snack)
Daily OutCszyfccgZlevZrslzYwyzwcakbfllpoUzdjrdqluw0315ShpdanoL6206Kttlcgbk78Uaxtq lipid (fat)d71Gfrjjtiibzhn, by ujtrhommdmy139Nxuuj, total ljzohsyt57Cvfvus, clnora47NslfagiuAlshxvy, Bilc7627Mbxp, Iyav52Jsmmpm, Oowg5297MxayyxvkXbcdfkb C, total
ascorbic lcpyhh67Ofkwpmf A, SVXN9184Wiqtzlg SWR040OrkesjBvbhq acids, total bgxsvvkvfg22Qcmpe acids, total bhsyulgjfasgijop71Stzzg acids, total kaclzhnmcptonpsv71Cekqwqbyadkay9
Gastric Surgery Vegetarian (Lacto-Ovo) Sample 1-Day [facility] Nutrient [email or web address]
Breakfast 1 scrambled egg1 slice white toast2 teaspoons margarine, soft, tub1 cup decaffeinated coffee (30-60 min after breakfast)
Morning Snack 6 saltine crackers2 ounces cheddar cheese� cup canned peaches, in juice1 cup 1% milk (30-60 minutes after snack)
Lunch 2 slices white bread2 tablespoons smooth peanut butter1 cup cantaloupe1 cup green tea (30-60 minutes after lunch)
Afternoon Snack 1 cup plain yogurt
Evening Meal � cup meatless chicken1 cup mashed potatoes1 cup cooked green beans2 teaspoons olive oil1 cup decaffeinated tea (30-60 minutes after dinner)
Evening Snack � ounce pretzels1 cup 1% milk (30-60 minutes after snack)
Daily PydKgkbwbrxLeccThfaaFivvnltbboexnoAvxgguyeiy7860UscqthyE9797Mxawevbw66Xzyzr lipid (fat)k20Fwuulnnzjpjl, by mkvbrwxcnoz101Gpddt, total huqvrcxc62Hkactq, qpijlr36VwoafyokTbqyfaz, Admd4404Agra, Kwge95Poqggh, Yada5797SbxioqmbIhnppyi C, total
ascorbic itdhbp61Ujgdmcl A, PTUR2115Yktgiak IOD870EdnevmSmjka acids, total iqtfasqgmd14Qcqbf acids, total ntashpcxeovjtnui67Szyeb acids, total fozacitvthkzbdao55Qigzmzlomprok776
Referrals:
Donaldo Costello MD [Active, Surgical] - in two weeks
Prescriptions:
New
pantoprazole 40 mg tablet,delayed release (DR/EC)
40 mg PO BID Qty: 60 0RF
acetaminophen [Tylenol Extra Strength] 500 mg tablet
1,000 mg PO Q6HPRN PRN (Reason: mild pain) Qty: 1 0RF
oxycodone 5 mg tablet
5 mg PO Q4HPRN PRN (Reason: breakthrough/severe pain) Qty: 5 0RF
Discharge Orders:
Discharge Patient (As Directed); Ordered 01/29/25
Ordered By: Donaldo Costello
Discharge Date and Time
Print Language: LITHUANIAN
[2025-01-29] MEDS: TYLENOL ORAL SOLUTION 1000 MG PO (12:25)
[2025-01-29 14:50] VITALS: BP 148/90
== END 2025-01-29 15:31 | disposition home or self-care (01) | DRG 853 ==
LOC: 2 SOUTH 09:10
PROVIDERS: Registered Nurse; ADMITTING PHYSICIAN Surgery; EMERGENCY PHYSICIAN Student in an Organized Health Care Education/Training Program
PROC: 0DQ90ZZ Repair Duodenum, Open Approach (ICD-10-PCS; 2025-01-23)
PROC: 0D9670Z Drainage of Stomach with Drainage Device, Via Natural or Artificial Opening (ICD-10-PCS; 2025-01-23)
PROC: 0DXU0ZW Transfer Omentum to Abdominal Region, Open Approach (ICD-10-PCS; 2025-01-23)
DX: A41.9 Sepsis, unspecified organism (principal); K26.1 Acute duodenal ulcer with perforation; K65.9 Peritonitis, unspecified; K44.9 Diaphragmatic hernia without obstruction or gangrene; D64.9 Anemia, unspecified
CPT/HCPCS: 74018; 74177; 74240; 80048; 83605; 83690; 85025; 85027; 87070; 93005; 96365; 96367; 96375; 96376; 99285; Q9967